=== PATIENT | female | born 1930 | race Caucasian/White ===

== ENCOUNTER 2016-11-14 05:57 | Inpatient (IN) ==
[2016-11-14] MEDS ORDERED: VANCOMYCIN INJ 1,000 MG in SODIUM CHLORIDE 0.9% 250 ML IV ONE (06:00)
--- NOTE | 2016-11-14 06:49 | History and Physical Update ---
History and Physical Update - History and Physical H&P was reviewed, the patient examined and there: are no changes in the patients condition since last H&P was completed.
[2016-11-14] MEDS ORDERED: DIAZEPAM 5 MG TABLET PO ONE (07:05)
[2016-11-14] MEDS ORDERED: FAMOTIDINE 20 MG TABLET PO ONE (07:05)
[2016-11-14] MEDS ORDERED: ceFAZolin 1,000 MG VIAL ONE (08:38)
[2016-11-14] MEDS ORDERED: DIAZEPAM 5 MG TABLET ONE (08:38)
[2016-11-14] MEDS ORDERED: FAMOTIDINE 20 MG TABLET ONE (08:38)
[2016-11-14] MEDS ORDERED: SODIUM CHLORIDE 0.9% 100 ML IV ONE (08:38)
[2016-11-14] MEDS ORDERED: VANCOMYCIN 1,000 MG VIAL ONE (08:38)
[2016-11-14] MEDS: LACTATED RINGERS 1,000 ML IV SCH ×4 (08:45→21:10)
[2016-11-14] MEDS ORDERED: TRANEXAMIC ACID 1,000 MG/10 ML VIAL IV ONE (09:07)
[2016-11-14] MEDS ORDERED: PHENYLEPHRINE 1 MG/10 ML SYRINGE IV ONE (09:28)
[2016-11-14] MEDS ORDERED: PROPOFOL 200 MG/20 ML VIAL IV ONE (09:28)
[2016-11-14] MEDS ORDERED: BACITRACIN OINT 0.9 GM PACK TOP ONE (11:12)
[2016-11-14 11:16] LABS: Apearance,Urine CLEAR (Clear); Bilirubin,Urine Negative (Negative); Blood, Urine Negative (Negative); Glucose,Urine (UA) Negative (Negative); Ketones,Urine Negative (Negative); Nitrite,Urine Negative (Negative); Protein,Urine Negative; RBC,Urine 4 /HPF (0-4); Squamous Epithelial Cell,Urine Occasional /HPF (0-10); Urine Color Straw (Yellow); Urine Urobilinogen < 2.0 EU/DL (0.2-1.0); WBC,Urine 3 /HPF (0-6)
[2016-11-14] MEDS ORDERED: MAGNESIUM HYDROXIDE SUSP 30 ML UDCUP PO PRN (11:19)
[2016-11-14] MEDS ORDERED: MORPHINE 2 MG/1 ML SYRINGE IV PRN ×2 (11:19)
[2016-11-14] MEDS ORDERED: ZALEPLON 5 MG CAPSULE PO PRN (11:19)
[2016-11-14] MEDS ORDERED: ONDANSETRON 4 MG/2 ML VIAL IV PRN (11:19)
[2016-11-14] MEDS ORDERED: oxyCODONE IR 5 MG TABLET PO PRN ×2 (11:19)
--- NOTE | 2016-11-14 11:28 | Operative Note ---
Date of procedure: 11/14/16 Procedure: DIAGNOSIS: Left hip primary osteoarthritis PROCEDURE: Left total hip arthroplasty (CPT#15194) SURGEON: Manfred ASST: Pradeep ANESTHESIA: Spinal PROCEDURE and FINDINGS: After adequate anesthesia was induced, the patient was placed in lateral decubitus position. Left lower extremities prepped and draped in usual sterile fashion. Posteriolateral approach to the hip was made. Skin, subcutaneous tissue and deep fascia was incised longitudinally. Gluteus belia muscle belly was split in line with its fibers. Piriformis, external rotators and capsule were taken down as a single layer as an inverted L shaped capsulotomy. Hip was dislocated. Templated femoral neck cut was made. Acetabulum was prepared by sequentially reaming to 51 mm. A 52 mm Continuum acetabular shell was press-fit with excellent stability. 1 6.5 millimeter screw was placed with an excellent bite. 32 mm elevated rim Longevity liner was placed with a dome hole plug. Femur was prepared sequentially with the box osteotome, canal finder and sequential broaches to 13. Components were trialed. A size 13 Versys advocate stem was cemented in place with Palacos cement and modern cementing techniques. A distal centralizer and cement restrictor were utilized. A 32+0 mm head was placed. The component was stable posteriorly and anteriorly. Capsule was repaired with #5 Tycron. Deep fascia was closed with 0 Vicryl [id number] suture. Subcutaneous tissue was closed deep with a 2-0 Vicryl runner and superficially with 3-0 interrupted buried sutures. Skin was closed with myles. Bacitracin and a sterile occlusive dressing was applied. Surgeon / Physician: Alexis Shearer Jr. Discharge Plan - Discharge Medications No Action Memantine [Namenda] 5 mg PO TID Donepezil [Aricept] 10 mg PO DAILY cefUROXime axetil [Cefuroxime] 500 mg PO BID - Follow Up or Referral - Forms/Instructions
--- NOTE | 2016-11-14 11:31 | Anesthesia Post-Op ---
Anesthesia Post OP - Post Ansesthetic Evaluation Patient seen in post op: Yes Resp: within normal limits CV: within normal limits Mental: within normal limits Temp: within normal limits [id number]: within normal limits Nausea and Vomiting: within normal limits Pain: within normal limits
[2016-11-14] MEDS ORDERED: MIDAZOLAM 2 MG/2 ML VIAL ONE (11:35)
[2016-11-14] MEDS ORDERED: KETAMINE 500 MG/10 ML VIAL ONE (11:35)
[2016-11-14] MEDS ORDERED: LACTATED RINGERS 1,000 ML IV ONE (11:36)
[2016-11-14] MEDS ORDERED: fentaNYL 100 MCG/2 ML VIAL ONE (11:36)
--- NOTE | 2016-11-14 12:03 | XRay Report ---
XR hip 1V LT Indication: Joint replacement (left hip) Comparison: None Technique: Single frontal view of the left hip Findings: Status post total left hip arthroplasty. No evidence of immediate hardware failure. Superficial skin myles overlie the hip. Subcutaneous and joint space air noted which is likely postoperative. IMPRESSION: Status post total left hip arthroplasty. PROCEDURE INTERPRETED AT [facility] DEPARTMENT OF RADIOLOGY Final Report Signed by: Dr Malvin Medrano
[2016-11-14] MEDS: ACETAMINOPHEN 500 MG TABLET PO SCH ×2 (15:11→21:05)
[2016-11-14] MEDS: MEMANTINE 5 MG TABLET PO SCH ×2 (15:11→21:05)
[2016-11-14] MEDS: KETOROLAC 15 MG/1 ML VIAL IV SCH ×2 (15:11→21:06)
--- NOTE | 2016-11-14 17:41 | Orthopedic Progress Note ---
Orthopedics - Subjective Interval history: Mrs Leonardo is doing extraordinarily well. She has walked in the [place]. Dressing clean, dry and intact. Left lower extremities neurovascular change. Plan: Continue with physical therapy. She can probably be discharged home with home health therapy in the next several days. Exam - Constitutional Vitals: Period Temp Pulse Resp BP Sys/Hall Pulse Ox Last 24 Hr 97.6 F-98.1 F 51-77 12-20 114-165/52-88 98-100
--- NOTE | 2016-11-14 19:29 | Pulmonology Progress Note ---
Pulmonary - PN: Subj Interval history: Who had a left total hip replacement earlier today by Dr. Alexis Avalos. This patient has done very well she is already been up walking in [place]. She seen along with her son. There were no new problems no new requests. The patient's main problems have been lymphangitis of the lower extremity secondary to chronic bilateral lower extremity edema. She also has a history of dementia. She had a recent urinary tract infection which is resolved. Physical exam. Vital signs. See below Psychiatric. Oriented 3. Pleasant and happy Neurologic. Cranial nerves are intact. Long track motor functions intact gait is almost normal. Face. Symmetrical. Lips and tongue are normal. Neck. Symmetrical. No meningismus. Lymphatics. No submandibular cervical supraclavicular or epitrochlear adenopathy. Chest. 100% clear. Heart no gallop Abdomen. Nontender. Positive bowel sounds Extremities. Nothing to suggest deep venous thrombophlebitis The remainder the physical exam is negative. Overall this patient is doing extremely well. Exam (Progress Note) - Constitutional Vitals: Period Temp Pulse Resp BP Sys/Hall Pulse Ox Last 24 Hr 97.6 F-98.1 F 51-77 12-20 114-165/52-88 98-100
[2016-11-14] MEDS: DOCUSATE SODIUM 100 MG CAPSULE PO SCH (21:06)
[2016-11-14] MEDS: CEFUROXIME 500 MG TABLET PO SCH (22:02)
[2016-11-15] MEDS: KETOROLAC 15 MG/1 ML VIAL IV SCH ×2 (03:02→09:47)
[2016-11-15] MEDS: ACETAMINOPHEN 500 MG TABLET PO SCH ×2 (03:02→09:47)
[2016-11-15 04:51] LABS: Basophils % 0.4 % (0.0-0.8); Eosinophils # 0.2 10*3/uL (0.0-0.87); Eosinophils % 2.5 % (0.00-10.9); Hematocrit 33.5 VOL% (35.7-47.0); Hemoglobin 11.2 GM/DL (12.0-16.0); Immature Granulocytes % 0.3 %; Immature Granulocytes Absolute 0.02 #; Lymphocytes # 0.4 10*3/uL (1.4-4.0); Lymphocytes % 5.6 % (21.3-54.2); Mean Corpuscular HGB Conc 33.4 GM/DL (32-36); Mean Corpuscular Hemoglobin 31 PG (27-34); Mean Platelet Volume 11.2 FL (9.6-12.0); Monocytes # 0.6 10*3/uL (0.11-0.8); Monocytes % 8.9 % (1.7-12.7); Neutrophils # 5.8 10*3/uL (1.4-7.4); Neutrophils % 82.3 % (38.7-73.9); Platelet Count 185 T/CUMM (130-400); Red Blood Count 3.64 MC/CUMM (3.8-5.5); Red Cell Distribution Width 13.3 % (9.3-17.3); White Blood Count 7.1 T/CUMM (4-12)
[2016-11-15 05:24] LABS: Calcium 8.8 MG/DL (8.5-10.1); Osmolality,Calculated 285.8 MOS/KG (273-304); Potassium 3.8 MMOL/L (3.5-5.1)
[2016-11-15 05:32] LABS: Band Neutrophils 2 % (0-10); Eosinophils 6 % (0-10); Hypochromasia 1+; Lymphocytes 6 % (20-55); Ovalocytes Slight; Platelet Estimate Normal; Segmented Neutrophils 79 % (50-85); Total Cells Counted 100
--- NOTE | 2016-11-15 08:41 | Orthopedic Progress Note ---
Orthopedics - Subjective Interval history: Ms Rolle has no complaints. However she is not oriented to place or time this morning. She has been pulling at her dressing and a catheter. She was able to ambulate in the [place] with physical therapy yesterday. Dressing is clean, dry and intact. Left lower extremities neurovascularly intact. Plan: We will eliminate narcotics and Sonata. Use acetaminophen for pain control. She is to continue physical therapy. The family is leaning towards home with home health. She has done extraordinarily well with physical therapy. She can be discharged when the family is ready. Exam - Constitutional Vitals: Period Temp Pulse Resp BP Sys/Hall Pulse Ox Last 24 Hr 97.6 F-98.7 F 51-77 12-19 114-165/52-88 94-100 Results - Labs CBC & BMP: 11/15/16 04:32 11/15/16 04:32
--- NOTE | 2016-11-15 08:47 | Discharge Summary ---
<Lacho Fernández - Last Filed: 11/16/16 10:11> Hospital Course - Hospital Course Hospital Course: Ms Rolle was admitted after undergoing an uncomplicated left total hip arthroplasty. She received perioperative DVT and antimicrobial prophylaxis. She was discharged home in stable condition. Dr. Ross was consulted to help manage her medical problems perioperatively. She did have problems with dementia and sundowning. As a consequence narcotics and Sonata were stopped. Patient's family desired for her to be discharged home with home health and therapy. Time of discharge, her dressings clean dry and she is neurovascularly intact in the left foot. Specialty Discharge - Follow Up or Referrals Follow up with: Alexis Shearer Jr., MD [Physician] - Discharge Plan - Discharge Data Disposition: Disch To Home/Self Care - Discharge Medications No Action Memantine [Namenda] 5 mg PO DAILY Donepezil [Aricept] 10 mg PO DAILY cefUROXime axetil [Cefuroxime] 500 mg PO BID - Follow Up or Referral Follow Up: Alexis Shearer Jr., MD [Physician] - - Forms/Instructions Instructions: Total Hip Replacement (DC) Exam - Constitutional Vitals: Period Temp Pulse Resp BP Sys/Hall Pulse Ox Last 24 Hr 97.7 F-98.9 F 71-77 16-18 120-154/52-73 95-100 Discharge Results Procedures and tests throughout hospitalization: Pending Orders 11/17/16 04:00 Comp Blood Count Auto Diff IN AM Labs on day of discharge: Labs from last 24 hours 11/16/16 04:49 WBC 8.0 RBC 3.53 L Hgb 10.8 L Hct 32.4 L MCV 91.8 MCH 31 MCHC 33.3 RDW 13.5 Plt Count 186 MPV 11.4 Neut % (Auto) 79.9 H Lymph % (Auto) 6.7 L [place] % (Auto) 9.9 Eos % (Auto) 2.8 Baso % (Auto) 0.3 Neut # (Auto) 6.4 Lymph # (Auto) 0.5 L [place] # (Auto) 0.8 Eos # (Auto) 0.2 Baso # (Auto) 0.0 Immature Gran % 0.4 Nucleated RBC % 0.0 Immature Gran # 0.03 Nucleated RBCs # 0.00 Hypochromasia 1+ Microcytosis Slight DS: Provider Date of admission: 11/14/16 05:57 Primary care physician: Yrn Ross MD Attending physician on admission: Alexis Shearer Jr., Consults: 11/14/16 11:19 Consult to Case Mgmt/Social Srvs [CONS] Routine Reason for Case Mgmt/Social Srvs: Rehab Home Health Equipment Consult Comment: Bedside Commode, CPM, Walker Consult to Occupational Therapy [CONS] Routine Reason for Occupational Therapy: Evaluate and Treat Consult Comment: ADL's Consult to Physical Therapy [CONS] Routine Reason for Physical Therapy: Evaluate and Treat Gait Training Start Therapy: Today Consult Comment: wbat, hip precautions 11/14/16 14:45 Consult to Physician [CONS] Routine Comment: Consulting Provider: Yrn Ross Consulting Provider Notified: Yes When should Consulting Provider be notified: Now Person Notified: Loren called Date Notified: 11/14/16 Time Notified: 15:04 Discharging clinician: Lacho Fernández MD <Alexis Shearer Jr. - Last Filed: 11/18/16 09:44> Discharge Plan - Discharge Data Condition at Discharge: Stable Discharge Diet: advance to your usual diet Activity: resume usual activities as tolerated Hygiene: may shower Weight Bearing at Discharge: weight bear as tolerated Driving: not until seen by doctor DS: Provider Expected date of discharge: 11/16/16
[2016-11-15] MEDS: FONDAPARINUX 2.5 MG/0.5 ML SYRINGE SUBCUT SCH (09:46)
[2016-11-15] MEDS: DONEPEZIL 10 MG TABLET PO SCH (09:46)
[2016-11-15] MEDS: CEFUROXIME 500 MG TABLET PO SCH ×2 (09:46→20:27)
[2016-11-15] MEDS: DOCUSATE SODIUM 100 MG CAPSULE PO SCH ×2 (09:47→20:27)
[2016-11-15] MEDS: MEMANTINE 5 MG TABLET PO SCH ×3 (09:47→20:27)
--- NOTE | 2016-11-15 11:18 | Pathology Report from [facility] ---
[facility] [place] : [id number] PATIENT NAME : Mehnaz Rolle ORDERING DR : AURORA ENG MD CLINICAL HX: LT hip osteoarthritis POST-OP DX: Same SPECIMEN INFO: LT hip bone & tissue GROSS DESCRIPTION: Received in formalin labeled MEHNAZ ROLLE is a femoral head measuring 5.2 x 4.7 x 4.8 cm. The articular surfaces are markedly degenerative with a large area of subchondral eburnation seen measuring 4.5 x 4.3 cm. The cut surface is smooth with some softening appreciated. Received separately in the specimen container is an aggregate of bone and soft tissue measuring 8.0 x 3.0 cm. Assistant District Attorney tissue is submitted in one cassette following decalcification. DIAGNOSIS FOR MEHNAZ ROLLE: LEFT HIP BONE & TISSUE, TOTAL REPLACEMENT: Osteoarthritis. COLLECTED DATE: 11/14/2016 [facility] REPORT DATE: 11/15/2016 ELECTRONICALLY SIGNED BY: Kina Johnson M.D. 11/15/2016 - 10:30:14 [facility]ITAL[facility]
--- NOTE | 2016-11-15 11:19 | Pulmonology Progress Note ---
Pulmonary - PN: Subj Interval history: Yovani Prado, ANP-BC, GNP-BC, acting as scribe for Dr. Yrn Ross Mrs. Rolle is an 86 year old white female who had a left total hip replacement 11/14/[address] Shearer. This patient has done very well. The evening of 2016 she had already been up walking in [place]. The patient's main problems have been lymphangitis of the lower extremity secondary to chronic bilateral lower extremity edema. She also has a history of dementia. She had a recent urinary tract infection which is resolved. 11/15/2016. She seen along with her son. There were no new problems no new requests. Her son reports that she has been very confused since admission. This is most likely an anesthesia effect, medication effect, and slight exacerbation of her dementia secondary to inpatient setting. Dr. Shearer has decreased some of her medications today. We agree with this. Overall, however , the patient has done remarkably well. Medications have been reviewed. We made no changes today. Labs been reviewed. White count 7100 with 82.3% segs; H&H 11.2/33.5; platelet count 195,000; creatinine 0.70, BUN 13, electrolytes are normal; urinalysis at admission showed no evidence of infection. Exam (Progress Note) - Constitutional Vitals: Period Temp Pulse Resp BP Sys/Hall Pulse Ox Last 24 Hr 97.6 F-98.7 F 51-77 12-19 114-165/52-88 94-100 Exam: Chest is clear Heart no gallop Abdomen is nontender and nondistended; bowel sounds are positive 4 Lower extremities postsurgical as per Dr. Shearer; nothing to suggest acute deep venous thrombophlebitis Psychiatric... See above Neurologic long tract motor function appears to be intact Plan: Continue present treatment. It is noted that the patient's family will most likely take her home with home health. Results - Labs CBC & BMP: 11/15/16 04:32 11/15/16 04:32
[2016-11-15] MEDS ORDERED: ACETAMINOPHEN 325 MG TABLET PO PRN (11:23)
[2016-11-15] MEDS: CELECOXIB 200 MG CAPSULE PO SCH (14:35)
[2016-11-16 05:16] LABS: Basophils % 0.3 % (0.0-0.8); Eosinophils # 0.2 10*3/uL (0.0-0.87); Eosinophils % 2.8 % (0.00-10.9); Hematocrit 32.4 VOL% (35.7-47.0); Hemoglobin 10.8 GM/DL (12.0-16.0); Immature Granulocytes % 0.4 %; Immature Granulocytes Absolute 0.03 #; Lymphocytes # 0.5 10*3/uL (1.4-4.0); Lymphocytes % 6.7 % (21.3-54.2); Mean Corpuscular HGB Conc 33.3 GM/DL (32-36); Mean Corpuscular Hemoglobin 31 PG (27-34); Mean Corpuscular Volume 91.8 FL (87-102); Mean Platelet Volume 11.4 FL (9.6-12.0); Monocytes # 0.8 10*3/uL (0.11-0.8); Monocytes % 9.9 % (1.7-12.7); Neutrophils # 6.4 10*3/uL (1.4-7.4); Neutrophils % 79.9 % (38.7-73.9); Platelet Count 186 T/CUMM (130-400); Red Blood Count 3.53 MC/CUMM (3.8-5.5); Red Cell Distribution Width 13.5 % (9.3-17.3)
[2016-11-16 07:39] LABS: Hypochromasia 1+; Microcytosis Slight
[2016-11-16] MEDS: FONDAPARINUX 2.5 MG/0.5 ML SYRINGE SUBCUT SCH (09:03)
[2016-11-16] MEDS: DONEPEZIL 10 MG TABLET PO SCH (09:03)
[2016-11-16] MEDS: CEFUROXIME 500 MG TABLET PO SCH (09:04)
[2016-11-16] MEDS: CELECOXIB 200 MG CAPSULE PO SCH (09:04)
[2016-11-16] MEDS: DOCUSATE SODIUM 100 MG CAPSULE PO SCH (09:04)
[2016-11-16] MEDS: MEMANTINE 5 MG TABLET PO SCH (09:04)
--- NOTE | 2016-11-16 10:46 | Pulmonology Progress Note ---
Pulmonary - PN: Subj Interval history: This 86-year-old white female who had a left total hip replacement. She has dementia. She is participating in physical therapy. Plans are for her to go home today to continue physical therapy there. She will follow-up with Dr. Ross as needed from there. Exam (Progress Note) - Constitutional Vitals: Period Temp Pulse Resp BP Sys/Hall Pulse Ox Last 24 Hr 97.7 F-98.9 F 71-77 16-18 120-154/52-73 95-100 Exam: Patient's alert oriented vital signs normal. However she did not know me and I have known her for 20 years plus. Pupils react to light. Throat is clear. Neck supple no bruits. Chest is clear equal breath sounds. Heart normal rate and rhythm no murmurs. Abdomen soft no masses. Extremities no clubbing cyanosis edema. Bandage on left hip. Calves nontender. Results - Labs CBC & BMP: 11/16/16 04:49 11/15/16 04:32 Lab Results: I have reviewed the past 24 hour labs Assessment and Plan (1) Status post left hip replacement Status: Acute Assessment and plan: Patient participating in physical therapy. Ready for discharge. Current Visit: Yes (2) Alzheimers disease Status: Acute Assessment and plan: Mental status appears good. Continue Alzheimer's meds at home. Discussed case with patient's son. Current Visit: Yes Specialty Discharge - Follow Up or Referrals Follow up with: Alexis Shearer Jr., MD [Physician] -
[2016-11-16 12:54] VITALS: BP 122/60
== END 2016-11-16 12:25 | disposition home health service (06) | DRG 470 ==
LOC: N.SDSINP 05:57 → N.3E 14:40
PROVIDERS: ADMIT Orthopaedic Surgery; ATTEND Orthopaedic Surgery

== ENCOUNTER 2017-05-22 08:39 | Inpatient (IN) ==
[2017-05-22] MEDS ORDERED: SODIUM CHLORIDE 0.9% 1,000 ML IV STA (09:03)
[2017-05-22 10:10] LABS: Basophils % 0.2 % (0.0-0.8); Eosinophils % 0.1 % (0.00-10.9); Hematocrit 39.1 VOL% (35.7-47.0); Immature Granulocytes % 0.6 %; Immature Granulocytes Absolute 0.06 #; Lymphocytes # 0.6 10*3/uL (1.4-4.0); Mean Corpuscular HGB Conc 33.2 GM/DL (32-36); Mean Corpuscular Hemoglobin 32 PG (27-34); Mean Corpuscular Volume 95.4 FL (87-102); Mean Platelet Volume 11.1 FL (9.6-12.0); Monocytes # 0.7 10*3/uL (0.11-0.8); Monocytes % 6.2 % (1.7-12.7); Neutrophils # 9.3 10*3/uL (1.4-7.4); Neutrophils % 86.9 % (38.7-73.9); Platelet Count 262 T/CUMM (130-400); Red Cell Distribution Width 14.6 % (9.3-17.3); White Blood Count 10.7 T/CUMM (4-12)
[2017-05-22 10:21] LABS: PT Patient Result 10.5 SECS; Partial Thromboplastin Time 26.5 SECS (0-40)
[2017-05-22] MEDS ORDERED: ONDANSETRON 4 MG/2 ML VIAL IV PRN (10:33)
[2017-05-22 10:35] LABS: Apearance,Urine Slightly Hazy (Clear); Bacteria,Urine Occasional /HPF (Few); Bilirubin,Urine Negative (Negative); Blood, Urine Moderate mg/dL (Negative); Glucose,Urine (UA) Negative (Negative); Hyaline Casts,Urine 1 /LPF (0-3); Ketones,Urine Negative (Negative); Mucus,Urine Occasional /LPF (Occasional); Nitrite,Urine Negative (Negative); Protein,Urine Negative; RBC,Urine 67 /HPF (0-4); Squamous Epithelial Cell,Urine Occasional /HPF (0-10); Urine Color Yellow (Yellow); Urine Specific Gravity 1.015 (1.001-1.035); Urine Urobilinogen < 2.0 EU/DL (0.2-1.0); WBC,Urine 23 /HPF (0-6)
[2017-05-22 10:39] LABS: Alanine Aminotransferase 19 U/L (13-56); Albumin 3.4 G/DL (3.4-5.0); Alkaline Phosphatase 73 U/L (45-117); Aspartate Amino Transferase 17 U/L (0-37); Blood Urea Nitrogen 13 MG/DL (7-18); Calcium 9.1 MG/DL (8.5-10.1); Glucose 143 MG/DL (74-106); Potassium 4.1 MMOL/L (3.5-5.1); Sodium 143 MMOL/L (136-145); Total Protein 7.3 G/DL (6.4-8.3); Troponin I Only < 0.015 NG/ML (0.00-0.045)
[2017-05-22 11:07] LABS: Ammonia < 10 UMOL/L (11-32)
[2017-05-22 12:33] LABS: Barbiturates Screen,Urine Negative (Negative); Benzodiazepines Screen,Urine Negative (Negative); Cannabinoid Screen,Urine Negative (Negative); Opiate Screen,Urine Negative (Negative); Phencyclidine Screen,Urine Negative (Negative)
[2017-05-22] MEDS: SODIUM CHLORIDE 0.45% 1,000 ML IV SCH (13:29)
[2017-05-23 05:33] LABS: Basophils % 0.3 % (0.0-0.8); Eosinophils # 0.1 10*3/uL (0.0-0.87); Hematocrit 38.2 VOL% (35.7-47.0); Immature Granulocytes % 0.6 %; Immature Granulocytes Absolute 0.06 #; Lymphocytes # 0.9 10*3/uL (1.4-4.0); Lymphocytes % 9.4 % (21.3-54.2); Mean Corpuscular Hemoglobin 32 PG (27-34); Mean Corpuscular Volume 94.1 FL (87-102); Mean Platelet Volume 11.4 FL (9.6-12.0); Monocytes # 0.9 10*3/uL (0.11-0.8); Neutrophils # 7.5 10*3/uL (1.4-7.4); Neutrophils % 79.7 % (38.7-73.9); Platelet Count 248 T/CUMM (130-400); Red Blood Count 4.06 MC/CUMM (3.8-5.5); White Blood Count 9.5 T/CUMM (4-12)
[2017-05-23 06:05] LABS: Calcium 8.7 MG/DL (8.5-10.1); Osmolality,Calculated 279.3 MOS/KG (273-304); Potassium 3.5 MMOL/L (3.5-5.1)
[2017-05-23] MEDS: SODIUM CHLORIDE 0.45% 1,000 ML IV SCH (20:51)
[2017-05-24] MEDS ORDERED: TUBERCULIN SKIN TEST 0.1 ML SYRINGE INTRADERM ONE (10:28)
[2017-05-24 22:23] VITALS: BP 188/84
== END 2017-05-25 01:10 | disposition expired | DRG 65 ==
LOC: EDUNIT# → EDBD → N.ED 08:39 → N.EDINP 10:04 → N.4E 12:00